=== PATIENT | female | born 1940 | race Caucasian/White ===

== ENCOUNTER 2023-11-09 14:58 | Outpatient (CLI) | payer MEDICARE, BC | END 2023-11-09 14:59 | disposition home or self-care (01) | LOC: CSHMAMMO 14:58 | PROVIDERS: ATTEND Internal Medicine Rheumatology | DX: M81.0 Age-related osteoporosis without current pathological fracture (principal) | CPT/HCPCS: 77080 ==

== ENCOUNTER 2024-07-18 09:51 | Outpatient (CLI) | payer MEDICARE, BC | END 2024-07-18 09:52 | disposition home or self-care (01) | LOC: CSHRAD 09:51 | PROVIDERS: ATTEND Internal Medicine Rheumatology | DX: M81.0 Age-related osteoporosis without current pathological fracture (principal) | CPT/HCPCS: 72070 ==